=== PATIENT | male | born 1940 | race Caucasian/White ===

== ENCOUNTER 2016-08-15 00:58 | Emergency (ER) | payer OTHER ==
--- NOTE | ~2016-08-15 | CT2 ---
[facility] A Service of [facility] & [facility] RADIOLOGY TEXT RESULTS PATIENT: DIAMOND KENDRICK LOCATION: [facility] : 42 UNIT #: [id number] AGE: [address]: Shay Tsai MD SEX: M ORDER DR: [id number] [facility] [address] [place], [place] [address] [id number] E MR#: [id number] Acc #: [id number] NAME: DIAMOND KENDRICK : 1940 SEX: M STUDY DATE/TIME: 08/15/2016 02:14 UNIT: [facility] ROOM: STUDY DESCRIPTION: CT Abd and Pelv W Cont Attending Physician: Shay Tsai M.D. Ordering Physician: Yunior Perez M.D. Primary Care Physician: Khoa Escoto M.D. MEDICAL IMAGING REPORT This report is preliminary unless electronic signature is present EXAM CT abdomen and pelvis, 08/15/2020 at 02:14 hours INDICATION Lower abdominal pain with diarrhea and vomiting that started yesterday afternoon. History of Araujo's esophagus. TECHNIQUE Axial images were obtained through the abdomen and pelvis following IV contrast administration. Multiplanar reformats were obtained. This CT exam was performed with one or more of the following radiation dose reduction techniques: automatic exposure control, adjustment of mA and/or kV according to patient size, and iterative reconstruction. COMPARISON 06/16/2015 FINDINGS ABDOMEN: Chronic left lower lobe pulmonary opacity is stable and has the appearance of benign round atelectasis. The gallbladder is surgically absent. This is new from prior. The solid abdominal organs are normal. No adenopathy is seen. There is diffuse atherosclerotic disease. There is gastroesophageal reflux. Multiple mildly dilated small bowel loops are seen in the abdomen and pelvis. This could reflect a very early small bowel obstruction or an ileus. No obstructing lesion is seen. The colon is normal. PELVIS: The appendix is normal. There is diffuse sigmoid diverticulosis. Question is raised of subtle diverticulitis in the proximal sigmoid colon. The bladder is normal. There are no lower ureteral stones. There is no free fluid. 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 STS. [facility] A Service of [facility] & [facility] RADIOLOGY TEXT RESULTS PATIENT: DIAMOND KENDRICK LOCATION: [facility] : 42 UNIT #: [id number] AGE: [address]: Shay Tsai MD SEX: M ORDER DR: IMPRESSION 1. There is diffuse sigmoid diverticulosis. Findings are suggestive of very subtle proximal sigmoid diverticulitis. 2. Normal appendix. 3. Mildly dilated small bowel may indicate a mild generalized ileus. Small bowel obstruction is not excluded but this is felt to be less likely. 4. Interval cholecystectomy. 5. Gastroesophageal reflux. 6. Stable appearance of what appears to be some round atelectasis in the left lower lobe. Dictated by... Chalino Manjarrez Jr., M.D. THIS IS AN ELECTRONICALLY VERIFIED REPORT Chalino Manjarrez Jr., M.D. at 08/15/2016 9:16 PM DIPIKA/brittany TD: 08/15/2016 10:13 JOB #: [id number] MEDICAL IMAGING REPORT COPY
[~2016-08-15 00:58] MED LIST: ASPIRIN PO; CHOLESTEROL PILL; FOSINOPRIL PO; FOSINOPRIL SODI20 MG PO; GLUCOMETER DE1 STRIP XX; GLUCOMETER DEX1 PKT IN; HYDROCODON-ACE1 EAC9 PO; LANCETS1 EAC2; LOMOTIL WHITE2.5 M1 PO; LOPRESSOR PO; METFORMIN HCL500 M1 PO; MIRTAZAPINE30 M1 PO; OMEPRAZOLE20 M1 PO; PANTOPRAZOLE SO40 MG PO; PHENERGAN12.5 MG PO; SIMVASTATIN20 MG PO; TOPROL XL50 MG PO; TYLENOL325 M1 PO; ZOCOR20 MG PO; ZOFRAN ODT4 MG PO; [UNRECOGNIZED DRUG - OTHER]
[2016-08-15 01:22] LABS: BASOPHIL% 0.3 % (0-2.5); EOSINOPHIL# 0.1 X10e3 (0-0.7); EOSINOPHIL% 0.6 % (0.0-7.0); HEMATOCRIT 41.1 % (38.0-50.0); HEMOGLOBIN 13.6 gm/dL (13.0-16.0); LYMPHOCYTE# 0.4 X10e3 (1.0-3.5); LYMPHOCYTE% 4.8 % (17.0-45.0); MEAN CELL VOLUME 81.2 FL (83-96); MEAN CORPUSCULAR HEMOGLOBIN 26.8 PG (28-34); MEAN PLATELET VOLUME 7.4 FL (6.5-11.5); MONOCYTE# 0.3 X10e3 (0-1.0); MONOCYTE% 3.2 % (3.0-12.0); NEUTROPHIL% 91.1 % (40-75); PLATELET COUNT 185 X10e3 (140-420); RED BLOOD COUNT 5.07 X10e (3.90-5.60); WHITE BLOOD COUNT 8.8 X10e3 (4.0-10.5)
[2016-08-15 01:23] LABS: DIFF IND NO
[2016-08-15 01:51] LABS: ALBUMIN SERUM 4.2 g/dL (3.5-5.0); ALKALINE PHOSPHATASE 65 U/L (32-92); ALT (SGPT) 9 U/L (10-40); AST (SGOT) 16 U/L (10-42); BILIRUBIN, DIRECT 0.3 mg/dL (0.0-0.2); BILIRUBIN,INDIRECT 1.3 mg/dL (0.0-0.9); BILIRUBIN,TOTAL 1.6 mg/dL (0.2-2.0); BLOOD UREA NITROGEN 11 mg/dL (9-23); CALCIUM SERUM 8.3 mg/dL (8.4-10.2); CARBON DIOXIDE 28 mmol/L (22-31); CHLORIDE 96 mmol/L (100-111); CREATININE SERUM 1.1 mg/dL (0.6-1.4); GLOM FILT RATE Estimated ABOVE60 mL/min (>60); GLUCOSE FASTING 153 mg/dL (70-110); LIPASE 21 U/L (22-51); POTASSIUM 3.5 mmol/L (3.5-5.1); SODIUM 131 mmol/L (135-145)
[2016-08-15 02:07] LABS: URINE SOURCE CLEAN CATCH
[2016-08-15 02:11] LABS: URINE APPEARANCE CLEAR; URINE BILIRUBIN NEG (NEG); URINE BLOOD TRACE (NEG); URINE COLOR YELLOW; URINE GLUCOSE NEG (NEG); URINE KETONE NEG (NEG); URINE LEUKOCYTE ESTERASE NEG (NEG); URINE NITRATE NEG (NEG); URINE PH 5.5 (5-8); URINE PROTEIN NEG (NEG); URINE SPECIFIC GRAVITY 1.023 (1.003-1.035); URINE UROBILINOGEN 0.2 MG/DL (NEG)
[2016-08-15 02:13] LABS: URBCS1 AUWI 0-2 /[HPF] (0-2); URINE BACTERIA AUWI NEG (NEGATIVE); URINE SQUAMOUS EPITHELIAL CELL NONE SEEN /[HPF]; UWBCS1 AUWI 0-2 (0-5)
[2016-08-15 02:24] LABS: CULTURE INDICATED? NO
== END 2016-08-15 03:27 | disposition home or self-care (01) ==
LOC: CED 00:58
PROVIDERS: Emergency Medicine
DX: K57.32 Diverticulitis of large intestine without perforation or abscess without bleeding (principal); K21.9 Gastro-esophageal reflux disease without esophagitis; E11.9 Type 2 diabetes mellitus without complications; I10 Essential (primary) hypertension; Z95.1 Presence of aortocoronary bypass graft; Z88.0 Allergy status to penicillin; Z79.82 Long term (current) use of aspirin
CPT/HCPCS: 36415; 74177; 80048; 80076; 81003; 83690; 85025; 96361; 96374; 99284; J2405; Q9967

== ENCOUNTER 2016-10-15 19:09 | Emergency (ER) | payer OTHER ==
--- NOTE | ~2016-10-15 | CR114 ---
[facility] A Service [facility] RADIOLOGY TEXT RESULTS PATIENT: DIAMOND KENDRICK LOCATION: SED : 42 UNIT #: [id number] AGE: [address]: Maryann Huber SEX: M ORDER DR: [id number] [address] [address] [id number] E MR#: [id number] Acc #: [id number] NAME: DIAMOND KENDRICK : 1940 SEX: M STUDY DATE/TIME: 10/15/2016 19:10 UNIT: SED ROOM: STUDY DESCRIPTION: CR Finger 2 View 5[address] Lt Attending Physician: Maryann Huber Pa-C Ordering Physician: Maryann Huber Pa-C Primary Care Physician: Khoa Escoto M.D. MEDICAL IMAGING REPORT This report is preliminary unless electronic signature is present. EXAM Left fifth finger 10/15/2016 HISTORY A 76-year-old male with left fifth finger pain status post laceration after closing finger in car door today. COMPARISON STUDIES None. FINDINGS 2 views of the left fifth finger demonstrate no evidence of acute fracture or dislocation. Mild degenerative change of the fifth proximal phalangeal joint. No radiopaque foreign bodies or soft tissue gas. IMPRESSION No radiopaque foreign bodies or soft tissue gas. No acute bony abnormality. 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 Dictated by... Donato Flores M.D. THIS IS AN ELECTRONICALLY VERIFIED REPORT Donato Flores M.D. at 10/16/2016 4:47 PM ISABEL/porter TD: 10/16/2016 00:29 JOB #: [id number] MEDICAL IMAGING REPORT [facility] A [facility] RADIOLOGY TEXT RESULTS PATIENT: DIAMOND KENDRICK LOCATION: SED : 42 UNIT #: [id number] AGE: [address]: Maryann Huber SEX: M ORDER DR: Page 1 of 1
== END 2016-10-15 20:41 | disposition home or self-care (01) ==
LOC: SED 19:09
DX: S61.217A Laceration without foreign body of left little finger without damage to nail, initial encounter (principal); E11.9 Type 2 diabetes mellitus without complications; I10 Essential (primary) hypertension; Z88.0 Allergy status to penicillin; Z79.899 Other long term (current) drug therapy; W23.0XXA Caught, crushed, jammed, or pinched between moving objects, initial encounter; Y93.89 Activity, other specified; Y92.410 Unspecified street and highway as the place of occurrence of the external cause
CPT/HCPCS: 12001; 73140; 99283